=== PATIENT | male | born 1995 | race Hispanic/Latino ===

== ENCOUNTER 2017-10-14 02:41 | Emergency (ER) | payer OTHER ==
[2017-10-14 02:54] VITALS: BMI 27.3
[2017-10-14 02:56] VITALS: BP 148/97; PULSE 84; RESP 18; TEMP 96.4; O2SAT 99
--- NOTE | 2017-10-14 03:12 | ED PDOC ---
HPI: Psych/Substance Abuse Time Seen by Provider: 10/14/17 03:03 Chief Complaint (Nursing): Alcohol Ingestion Chief Complaint (Provider): Alcohol Ingestion History Per: Patient History/Exam Limitations: no limitations Onset/Duration Of Symptoms: Mins (prior to arrival) Current Symptoms Are (Timing): Still Present Additional Complaint(s): 22 year old male who presents to the emergency department via EMS, for an evaluation of alcohol intoxication after patient was found sleeping in a local [employer] prior to arrival. Denied any further medical complaints. PMD: none provided Past Medical History Reviewed: Historical Data, Nursing Documentation, Vital Signs Vital Signs: Last Vital Signs Temp 96.4 F L 10/14/17 02:54 Pulse 84 10/14/17 02:54 Resp 18 10/14/17 02:54 BP 148/97 H 10/14/17 02:54 Pulse Ox 99 10/14/17 02:54 - Medical History PMH: No Chronic Diseases - Surgical History Surgical History: No Surg Hx - Family History Family History: States: Unknown Family Hx - Social History Current smoker - smoking cessation education provided: No Alcohol: None Drugs: Denies - Allergies Allergies/Adverse Reactions: Allergies Allergy/AdvReac Type Severity Reaction Status Date / Time No Known Allergies Allergy Verified 10/14/17 02:54 Review of Systems ROS Statement: Except As Marked, All Systems Reviewed And Found Negative Physical Exam - Reviewed Nursing Documentation Reviewed: Yes Vital Signs Reviewed: Yes - Physical Exam Neurologic/Psych: Positive for: Alert (x3), Oriented, Mood/Affect (clear thoughts; full sentences), Gait (steady). Negative for: Motor/Sensory Deficits - ECG O2 Sat by Pulse Oximetry: 99 (RA) Pulse Ox Interpretation: Normal Medical Decision Making Medical Decision Making: Initial Impression: Alcohol intoxication Time: 0305 --Upon provider evaluation, patient is requesting to be discharged from ED to take a taxi cab home and declined further treatment. Patient is medically cleared, stable and requires no further treatment in the ED at this time. Patient will be discharged home. Counseling was provided and all questions were answered regarding diagnosis. There is agreement to discharge plan. Return if symptoms persist or worsen. Clinical Impression: Alcohol use Scribe Attestation: Documented by Kayleen Silvestre, acting as a scribe for Roman Mckeon MD. Provider Scribe Attestation: All medical record entries made by the Scribe were at my direction and personally dictated by me. I have reviewed the chart and agree that the record accurately reflects my personal performance of the history, physical exam, medical decision making, and the department course for this patient. I have also personally directed, reviewed, and agree with the discharge instructions and disposition. Disposition - Clinical Impression Clinical Impression: Alcohol use - Patient ED Disposition Is Patient to be Admitted: No Counseled Patient/Family Regarding: Diagnosis - Disposition Disposition: Routine/Home Disposition Time: 03:05 Condition: STABLE Forms: [employer] ([place])
== END 2017-10-14 03:15 | disposition home or self-care (01) ==
LOC: H.ER 02:41
DX: F10.129 Alcohol abuse with intoxication, unspecified (principal)